=== PATIENT | female | born 1950 | race Caucasian/White ===

== ENCOUNTER 2024-06-17 15:15 | Emergency (ER) | payer BC ==
[~2024-06-17] VITALS: Ht 157.5 cm; Wt 68.0 kg
--- NOTE | 2024-06-17 17:00 | NUR ---
BIBS FROM HOME FOR GROUND LEVEL FALL. A/O X 3, ABLE TO MAKE NEEDS KNOWN, TOLERATING WELL ON ROOM AIR. WILL CONTINUE TO MONITOR.
[2024-06-17] MEDS ORDERED: LORAZEPAM 1 MG TABLET ONE (17:42)
--- NOTE | 2024-06-17 17:45 | NUR ---
PATIENT NOTED OUT OF BED AND ELOPED FROM FACILITY. AWARE
[2024-06-17] MEDS: LORAZEPAM 1 MG TABLET PO ONE (17:46)
--- NOTE | 2024-06-17 17:46 | NUR ---
1 mg ativan returned to [facility] and witnessed by MAX Rogers
[2024-06-17 17:48] VITALS: BP 122/86; TEMP 98.2; O2SAT 100
== END 2024-06-17 17:50 | disposition left against medical advice (07) ==
LOC: ER 16:10
DX: S00.11XA Contusion of right eyelid and periocular area, initial encounter (principal); H93.11 Tinnitus, right ear; F03.90 Unspecified dementia, unspecified severity, without behavioral disturbance, psychotic disturbance, mood disturbance, and anxiety; I10 Essential (primary) hypertension; Z88.0 Allergy status to penicillin; W18.39XA Other fall on same level, initial encounter; Y93.89 Activity, other specified; Y92.89 Other specified places as the place of occurrence of the external cause; Y99.8 Other external cause status

== ENCOUNTER 2025-01-19 23:56 | Inpatient (IN) | payer BC, OTHER ==
[~2025-01-19] VITALS: Ht 160 cm; Wt 60.8 kg
[2025-01-20] MEDS ORDERED: TDAP [DIPH/PERTUSSIS/TET] 0.5 ML VIAL IM ONE (00:33)
[2025-01-20] MEDS: TDAP [DIPH/PERTUSSIS/TET] 0.5 ML VIAL IM ONE (00:38)
[2025-01-20 01:59] LABS: BASOPHILS % (AUTO) 0.4 % (0.0-2.0); EOSINOPHILS # (AUTO) 0.1 K/uL (0.0-0.7); EOSINOPHILS % (AUTO) 0.9 % (0.0-6.0); HEMATOCRIT 37 % (33-45); HEMOGLOBIN 12.5 g/dL (11.5-14.8); LYMPHOCYTES # (AUTO) 1.5 K/uL (0.8-4.8); LYMPHOCYTES % (AUTO) 15.2 % (20.0-44.0); MEAN CORPUSCULAR HEMOGLOBIN 33 PG (26.0-33.0); MEAN CORPUSCULAR HGB CONC 34 g/dl (31.0-36.0); MEAN CORPUSCULAR VOLUME 97 fL (82-100); MONOCYTES # (AUTO) 1.6 K/uL (0.1-1.30); MONOCYTES % (AUTO) 15.6 % (2.0-12.0); NEUTROPHILS # (AUTO) 6.9 K/uL (1.8-8.9); NEUTROPHILS % (AUTO) 67.9 % (43.0-81.0); PLATELET COUNT (AUTO) 228 K/uL (150-450); RED BLOOD CELL COUNT(AUTO) 3.79 MIL/uL (4.0-5.2); RED CELL DISTRIBUTION WIDTH 15.1 % (11.5-15.0); WHITE BLOOD COUNT (AUTO) 10.2 K/uL (4.3-11.0)
[2025-01-20 02:13] LABS: CALCIUM, SERUM 9.4 mg/dL (8.5-10.1); CREATININE 1.2 mg/dL (0.6-1.3); POTASSIUM 3.4 mmol/L (3.5-5.1)
[2025-01-20 02:42] LABS: PARTIAL THROMBOPLASTIN TIME 26.5 SEC (24.3-34.3); PROTHROMBIN TIME 10.6 SECS (9.2-11.1)
[2025-01-20 02:47] LABS: MAGNESIUM 2.1 mg/dL (1.8-2.4)
[2025-01-20] MEDS ORDERED: MAGNESIUM HYDROXIDE 30 ML UDC PO PRN (03:30)
[2025-01-20] MEDS ORDERED: MAG HYDROX/AL HYDROX/SIMETH 30 ML UDC PO PRN (03:30)
[2025-01-20 05:57] VITALS: BP 146/82; TEMP 97.7; O2SAT 96
[2025-01-20] MEDS: POTASSIUM CHLORIDE 20 MEQ TAB.PRT.SR PO ONE ×2 (06:02→06:07)
[2025-01-20] MEDS ORDERED: POTASSIUM CHLORIDE 20 MEQ POWDER PACKET PO ONE (10:00)
[2025-01-20 10:20] VITALS: BP 134/83; TEMP 97.5; O2SAT 98
[2025-01-20 11:35] LABS: THYROID STIMULATING HORMONE 5.15 uIU/mL (0.358-3.74)
[2025-01-20] MEDS: QUETIAPINE FUMARATE 25 MG TABLET PO SCH (11:42)
[2025-01-20] MEDS: PANTOPRAZOLE 40 MG VIAL IV SCH (11:42)
[2025-01-20] MEDS: ONDANSETRON HCL/PF 4 MG/2 ML VIAL IVP PRN (12:00)
[2025-01-20 16:26] VITALS: BP 149/78; TEMP 98.2; O2SAT 96
[2025-01-20 20:00] VITALS: BP 156/96; TEMP 98.2; O2SAT 95
[2025-01-20] MEDS: ACETAMINOPHEN 325 MG TABLET PO PRN (23:12)
[2025-01-21 07:11] LABS: BASOPHILS # (AUTO) 0.1 K/uL (0.0-0.2); BASOPHILS % (AUTO) 0.5 % (0.0-2.0); EOSINOPHILS # (AUTO) 0.1 K/uL (0.0-0.7); EOSINOPHILS % (AUTO) 0.5 % (0.0-6.0); HEMATOCRIT 38 % (33-45); HEMOGLOBIN 12.9 g/dL (11.5-14.8); LYMPHOCYTES # (AUTO) 1.4 K/uL (0.8-4.8); LYMPHOCYTES % (AUTO) 11.9 % (20.0-44.0); MEAN CORPUSCULAR HEMOGLOBIN 33 PG (26.0-33.0); MEAN CORPUSCULAR HGB CONC 34 g/dl (31.0-36.0); MEAN CORPUSCULAR VOLUME 96 fL (82-100); MONOCYTES # (AUTO) 1.6 K/uL (0.1-1.30); MONOCYTES % (AUTO) 13.2 % (2.0-12.0); NEUTROPHILS % (AUTO) 73.9 % (43.0-81.0); PLATELET COUNT (AUTO) 261 K/uL (150-450); RED BLOOD CELL COUNT(AUTO) 3.97 MIL/uL (4.0-5.2); RED CELL DISTRIBUTION WIDTH 15.1 % (11.5-15.0); WHITE BLOOD COUNT (AUTO) 12.2 K/uL (4.3-11.0)
[2025-01-21 07:35] LABS: CALCIUM, SERUM 9.5 mg/dL (8.5-10.1); MAGNESIUM 2.1 mg/dL (1.8-2.4); PHOSPHORUS 3.3 mg/dL (2.5-4.9); POTASSIUM 3.2 mmol/L (3.5-5.1)
[2025-01-21 08:00] VITALS: BP 139/88; TEMP 97.9; O2SAT 92
[2025-01-21] MEDS: PANTOPRAZOLE 40 MG TABLET.DR PO SCH (08:24)
[2025-01-21] MEDS: POTASSIUM CHLORIDE 20 MEQ TAB.PRT.SR PO SCH (10:33)
[2025-01-21 16:00] VITALS: BP 133/59; TEMP 98.4; O2SAT 96
[2025-01-21 18:12] LABS: APPEARANCE,URINE CLEAR (CLEAR); BILIRUBIN,URINE NEGATIVE (NEGATIVE); BLOOD, URINE 3+ Ery/uL (NEGATIVE); COLOR,URINE YELLOW (YELLOW); KETONES,URINE TRACE mg/dL (NEGATIVE); LEUKOCYTE ESTERASE ,URINE NEGATIVE (NEGATIVE); NITRITE, URINE NEGATIVE (NEGATIVE); PROTEIN,URINE TRACE mg/dl (NEGATIVE); UGLUCOSE NEGATIVE (NEGATIVE)
[2025-01-21 19:44] LABS: ADD URINE CULTURE NO; BACTERIA,URINE Rare /HPF (None Seen); RBC,URINE 51-80 /HPF (0-2); WBC,URINE 0-2 /HPF (0-3)
[2025-01-21 20:00] VITALS: BP 149/101; TEMP 98.1; O2SAT 95
[2025-01-22] MEDS ORDERED: IV NS 0.9% 250 ML IV ONE (10:34)
[2025-01-22] MEDS ORDERED: CT SWABBABLE VALVE TRANS SET 1 EA INFUS.SET MC ONE (10:34)
[2025-01-22] MEDS ORDERED: IOHEXOL-350 100 ML VIAL IV ONE (10:34)
[2025-01-22 10:38] LABS: CALCIUM, SERUM 9.6 mg/dL (8.5-10.1); CREATININE 1.2 mg/dL (0.6-1.3); POTASSIUM 3.3 mmol/L (3.5-5.1)
[2025-01-22] MEDS ORDERED: LORAZEPAM INJ 2 MG/ML VIAL IM/IV PRN (12:00)
[2025-01-22] MEDS: LORAZEPAM 1 MG TABLET PO PRN (13:21)
[2025-01-22 17:30] VITALS: BP 162/96; TEMP 98.4; O2SAT 98
[2025-01-23 00:10] LABS: FOLIC ACID 4.1 ng/mL (>3.0)
[2025-01-23] MEDS ORDERED: POTASSIUM CHLORIDE 20 MEQ TAB.PRT.SR PO ONE (12:30)
[2025-01-23] MEDS: POTASSIUM CHLORIDE 20 MEQ POWDER PACKET PO ONE (16:49)
[2025-01-23] MEDS: MEMANTINE HCL 5 MG TABLET PO SCH (16:49)
[2025-01-23] MEDS: QUETIAPINE FUMARATE 25 MG TABLET PO PRN (16:54)
[2025-01-23] MEDS: DIVALPROEX SODIUM 250 MG TABLET.DR PO SCH (21:19)
[2025-01-24 04:00] VITALS: BP 138/66; TEMP 97.7; O2SAT 95
[2025-01-24 09:00] VITALS: BP 154/87; TEMP 98.5; O2SAT 95
[2025-01-24] MEDS ORDERED: DIVA250T PO (12:48)
[2025-01-24] MEDS ORDERED: MEMA10TA PO (12:48)
[2025-01-24 13:00] VITALS: BP 144/86; TEMP 98.5; O2SAT 95
[2025-01-24] MEDS: LORAZEPAM 1 MG TABLET PO PRN (14:33)
[2025-01-24 18:00] VITALS: BP 180/89; TEMP 97.9; O2SAT 97
[2025-01-24 20:00] VITALS: BP 117/90; TEMP 98.4; O2SAT 94
[2025-01-25 07:30] VITALS: BP 161/95; TEMP 97.5; O2SAT 94
[2025-01-25 09:25] VITALS: BP 161/95; TEMP 97.5; O2SAT 95
[2025-01-25 20:00] VITALS: BP 142/92; TEMP 97.8; O2SAT 95
[2025-01-26 07:00] VITALS: BP 152/98; TEMP 97.7; O2SAT 95
[2025-01-26 08:00] VITALS: BP 152/90; TEMP 97.7; O2SAT 95
== END 2025-01-26 13:26 | disposition home health service (06) | DRG 640 ==
LOC: ER 01-20 00:04 → MED 01-20 04:29
PROVIDERS: ATTEND Nurse Practitioner Acute Care
PROC: 0HB0XZZ Excision of Scalp Skin, External Approach (ICD-10-PCS; principal; 2025-01-20)
DX: E86.0 Dehydration (principal); G93.41 Metabolic encephalopathy; F02.84 Dementia in other diseases classified elsewhere, unspecified severity, with anxiety; F02.818 Dementia in other diseases classified elsewhere, unspecified severity, with other behavioral disturbance; F02.83 Dementia in other diseases classified elsewhere, unspecified severity, with mood disturbance; M84.48XA Pathological fracture, other site, initial encounter for fracture; R29.6 Repeated falls; S01.01XA Laceration without foreign body of scalp, initial encounter; G30.9 Alzheimer's disease, unspecified; W01.0XXA Fall on same level from slipping, tripping and stumbling without subsequent striking against object, initial encounter; Y92.009 Unspecified place in unspecified non-institutional (private) residence as the place of occurrence of the external cause; Z91.81 History of falling; Z91.83 Wandering in diseases classified elsewhere; I10 Essential (primary) hypertension; F41.9 Anxiety disorder, unspecified; Z88.0 Allergy status to penicillin; R79.89 Other specified abnormal findings of blood chemistry; E87.6 Hypokalemia; E03.8 Other specified hypothyroidism; Z78.1 Physical restraint status; R53.1 Weakness; S63.591A Other specified sprain of right wrist, initial encounter; F39 Unspecified mood [affective] disorder; F29 Unspecified psychosis not due to a substance or known physiological condition; M19.09 Primary osteoarthritis, other specified site
CPT/HCPCS: 36415; 70450-TC; 70486-TC; 70496-TC; 70498-TC; 71045-TC; 72125-TC; 73110; 80048-TC; 80061-TC; 81001; 82607-TC; 82962-TC; 83735-TC; 83880; 83921; 84100-TC; 84425; 84439-TC; 84443-TC; 84484-TC; 85025-TC; 85730-TC; 90715; 97110-TC; 97116-TC; 97530-TC; 97535-TC; G0378; J2405; J2470; J7050; Q9967